=== PATIENT | female | born 1970 | race Caucasian/White ===

== ENCOUNTER 2019-04-23 08:53 | Inpatient (IN) ==
[2019-04-23] MEDS ORDERED: NS 1,000 ML IV ONE ×3 (09:09→09:10)
[2019-04-23] MEDS ORDERED: NS 500 ML IV ONE (09:11)
--- NOTE | 2019-04-23 09:19 | PROVIDER DOCUMENTATION ---
HPI-Respiratory General - General Chief Complaint: SEPSIS ALERT - D Stated Complaint: COUGH/SOB Time Seen by Provider: 04/23/19 09:05 Source: patient Allergies/Adverse Reactions: Patient Allergies Allergy/AdvReac Type Severity Reaction Status Date / Time aspirin Allergy Severe ANAPHYLAXIS Verified 04/23/19 09:43 cephalexin monohydrate * Allergy Severe ANAPHYLAXIS Verified 04/23/19 09:43 [From Keflex] daptomycin [From CUBICIN] Allergy Severe ANAPHYLAXIS Verified 04/23/19 09:43 vancomycin Allergy Severe ANAPHYLAXIS Verified 04/23/19 09:43 latex Allergy RASH Verified 04/23/19 09:43 Corticosteroids AdvReac Intermediate NAUSEA/VOMI Verified 04/23/19 09:43 (Glucocorticoids) TING naproxen AdvReac Intermediate SWELLING Verified 04/23/19 09:43 [id number] Antimigraine AdvReac Intermediate FLUSHING Verified 04/23/19 09:43 Agents naproxen sodium * AdvReac Unknown Verified 04/23/19 09:43 [From Anaprox] Penicillins AdvReac RASH Verified 04/23/19 09:43 Home Medications: Home Medication List Medication Instructions Recorded Confirmed Last Taken Type Gabapentin 800 mg PO TID 08/27/14 04/23/19 04/23/19 History Hydrocodone/Acetaminophen [[place] 10 mg PO TID 08/27/14 04/23/19 04/23/19 History 10-325 Tablet] Atenolol 25 mg PO DAILY 07/04/17 04/23/19 04/23/19 History Losartan [Cozaar] 100 mg PO DAILY 07/04/17 04/23/19 04/23/19 History Albuterol Sulfate Inhaler 2 puff INH Q6H PRN PRN #1 inhaler 09/01/17 04/23/19 04/23/19 Rx [Ventolin Hfa] Guaifenesin/D-Methorphan Hb/PE 1 ea PO Q4-6H PRN PRN #20 tab 09/20/17 04/23/19 04/23/19 Rx [Deconex Dmx Tablet] Azithromycin [Zithromax Z-Darnell] 250 mg PO DIRECTED #1 pkg 04/13/19 04/23/19 2 Days Ago Rx ~04/21/19 Insulin Degludec [Tresiba 60 unit SQ QPM 04/23/19 04/23/19 1 Day Ago History Flextouch U-100] ~04/22/19 Sitagliptin [Januvia] 50 mg PO DAILY 04/23/19 04/23/19 04/23/19 History Tizanidine [Zanaflex] 4 mg PO QHS 04/23/19 04/23/19 1 Day Ago History ~04/22/19 - History of Present Illness-Resp Nature of Presenting Problem: Patient presents with worsening shortness of breath. She was seen last week and diagnosed with bronchitis. She took a Zpak, but states she continues to worsen. She has quit smoking. Quality of Pain: reports: none Onset/Duration: reports: last week Timing: reports: still present Context: denies: recent foreign travel, insect bite (possible tick), recent chemotherapy, multiple patients with similar complaints, recent URI, out of meds, sports/exercise, aspiration/choking, other Exposure: reports: unknown cause Cough Quality/Degree: reports: severe, sputum (green) Episode Frequency: occasional episodes Current Respiratory Medication Therapy: Initiated see nurses note Modifying Factors: improves with: nothing Associated Symptoms: reports: muscle/bodyaches, shortness of breath. denies: fever/chills Similar Symptoms Previously?: Yes Recently seen or treated by another doctor?: Yes Review of Systems - Adult - REVIEW OF SYSTEMS - ADULT Constitutional: reports: no symptoms reported Eyes: reports: no symptoms reported Ears, Nose, Mouth & Throat: reports: no symptoms reported Cardiovascular: reports: no symptoms reported Respiratory: reports: see HPI Gastrointestinal: reports: no symptoms reported Genitourinary: reports: incontinence Musculoskeletal: reports: see HPI Integumentary: reports: no symptoms reported Neurological: reports: no symptoms reported Psychiatric: reports: no symptoms reported Endocrine: reports: no symptoms reported Allergic/Immunologic: reports: no symptoms reported Past History - Adult - PAST MEDICAL HISTORY-ADULT Review of Records: reports: Old Records Reviewed, Nursing Assessment Review Major Childhood Illnesses: reports: denies history Cardiovascular: reports: HTN Respiratory: reports: denies history Gastrointestinal: reports: denies history Obstetrical/Gynecological: reports: denies history Genitourinary: reports: denies history Musculoskeletal: reports: chronic pain, other (rheumatoid/ sepsis ) Neurological: reports: denies history Endocrine/Immune: reports: Diabetes, other (hx of hep C) Other Conditions: reports: other (strep intermedius in left knee) - PRIOR SURGERIES/PROCEDURES Surgical/Procedure History: reports: cholecystectomy, hysterectomy, orthopedic (extremity), joint replacement - PRIOR HOSPITALIZATIONS Prior Hospitalizations: reports: none - IMMUNIZATION STATUS Childhood Immunizations: See Nurse Assessment Flu Vaccine: See Nurse Assessment - FAMILY HISTORY Family History: reviewed, not pertinent Physical Exam-General - PHYSICAL EXAM-ADULT Initial Vital Signs Reviewed: Yes - CONSTITUTIONAL General Appearance: alert, mild distress, obese - EYES Eyes: PERRL/EOMI, pink conjunctivae - HEAD, EARS, NOSE, MOUTH & THROAT HENMT: normocephalic/atraumatic, moist mucous membranes, normal ENT inspection, TMs normal, pharynx normal - NECK Neck: non-tender, full range of motion, supple - RESPIRATORY Respiratory: respiratory distress (mild), wheezing - CARDIOVASCULAR Cardiovascular: normal peripheral pulses, no edema, no gallop, no murmur, tachycardia - GASTROINTESTINAL (ABDOMEN) Abdominal Exam: normal bowel sounds, non tender, soft, no organomegaly, no pul satile mass - LYMPHATIC Lymphatic: no adenopathy - MUSCULOSKELETAL Back Exam: normal inspection, no CVA tenderness, no vertebral tenderness Extremity: normal range of motion, non-tender, normal gait Peripheral Pulses: radial (R): 2+, radial (L): 2+, dorsalis-pedis (R): 1+, dorsalis-pedis (L): 1+ - SKIN Integumentary: normal color, normal turgor, warm/dry, abrasion(s) - NEUROLOGIC Neurologic: grossly normal - PSYCHIATRIC Psych/Mental Status: normal mood/affect - HEART Score HEART Score: History: Slightly Suspicious HEART Score: ECG: Normal HEART Score: Age: 45-65 Years HEART Score: Risk Factors for Atherosclerotic Disease: 1 or 2 Risk Factors HEART Score: Troponin: < or = Normal Limit Total HEART Score:: 2 Progress - PLAN OF CARE/RESULTS Progress/Plan/Lab Results: Vital Signs - 8 hr 04/23/19 08:57 04/23/19 10:23 04/23/19 10:31 Temperature 97.8 F Pulse Rate 131 H 112 H 113 H Respiratory Rate 26 H 18 21 Blood Pressure 170/124 173/108 O2 Sat by Pulse Oximetry 92 L 95 92 L 04/23/19 11:03 04/23/19 11:15 04/23/19 11:17 Temperature 98.9 F Pulse Rate 113 H 108 H 115 H Respiratory Rate 25 H 19 23 Blood Pressure 180/119 175/165 175/165 O2 Sat by Pulse Oximetry 94 L 92 L 95 Laboratory Results - last 24 hr 04/23/19 04/23/19 04/23/19 09:11 09:22 09:22 WBC 12.02 H RBC 4.42 Hgb 12.5 Hct 37.9 MCV 85.7 MCH 28.3 MCHC 33.0 RDW Std Deviation 15.0 H Plt Count 397 MPV 9.4 Immature Gran % (Auto) 0.5 Neut % (Auto) 62.6 Lymph % (Auto) 29.0 [place] % (Auto) 3.7 Eos % (Auto) 3.6 Baso % (Auto) 0.6 Immature Gran # (Auto) 0.06 H Neut # (Auto) 7.53 H Lymph # (Auto) 3.49 H [place] # (Auto) 0.44 Eos # (Auto) 0.43 Baso # (Auto) 0.07 PT INR PTT (Actin FS) Sodium 135 L Potassium 3.5 Chloride 101 Carbon Dioxide 21 L Anion Gap 13 BUN 5 L Creatinine 0.6 Estimated GFR/1.73 m2 > 60 BUN/Creatinine Ratio 8 Glucose 183 H POC Glucose 148 H Calculated Osmolality 272 Calcium 8.6 L Total Bilirubin 0.23 AST 24 ALT 20 Alkaline Phosphatase 185 H Creatine Kinase 89 Troponin T Total Protein 6.7 Albumin 3.9 Globulin 2.8 Albumin/Globulin Ratio 1.4 Plasma Lactate Urine Source Urine Color Urine Turbidity Urine pH Ur Specific [place] Urine Protein Ur Glucose (Stick) Ur Ketones (Stick) Urine Blood Urine Nitrite Urine Bilirubin Urobilinogen Dipstick Urine Leukocytes Urine WBC (Auto) Urine RBC (Auto) U Epithel Cells (Auto) Urine Bacteria (Auto) 04/23/19 04/23/19 04/23/19 09:22 09:22 09:22 WBC RBC Hgb Hct MCV MCH MCHC RDW Std Deviation Plt Count MPV Immature Gran % (Auto) Neut % (Auto) Lymph % (Auto) [place] % (Auto) Eos % (Auto) Baso % (Auto) Immature Gran # (Auto) Neut # (Auto) Lymph # (Auto) [place] # (Auto) Eos # (Auto) Baso # (Auto) PT 13.0 INR 0.91 PTT (Actin FS) 36.6 Sodium Potassium Chloride Carbon Dioxide Anion Gap BUN Creatinine Estimated GFR/1.73 m2 BUN/Creatinine Ratio Glucose POC Glucose Calculated Osmolality Calcium Total Bilirubin AST ALT Alkaline Phosphatase Creatine Kinase Troponin T < 0.010 Total Protein Albumin Globulin Albumin/Globulin Ratio Plasma Lactate 0.9 Urine Source Urine Color Urine Turbidity Urine pH Ur Specific [place] Urine Protein Ur Glucose (Stick) Ur Ketones (Stick) Urine Blood Urine Nitrite Urine Bilirubin Urobilinogen Dipstick Urine Leukocytes Urine WBC (Auto) Urine RBC (Auto) U Epithel Cells (Auto) Urine Bacteria (Auto) 04/23/19 09:25 WBC RBC Hgb Hct MCV MCH MCHC RDW Std Deviation Plt Count MPV Immature Gran % (Auto) Neut % (Auto) Lymph % (Auto) [place] % (Auto) Eos % (Auto) Baso % (Auto) Immature Gran # (Auto) Neut # (Auto) Lymph # (Auto) [place] # (Auto) Eos # (Auto) Baso # (Auto) PT INR PTT (Actin FS) Sodium Potassium Chloride Carbon Dioxide Anion Gap BUN Creatinine Estimated GFR/1.73 m2 BUN/Creatinine Ratio Glucose POC Glucose Calculated Osmolality Calcium Total Bilirubin AST ALT Alkaline Phosphatase Creatine Kinase Troponin T Total Protein Albumin Globulin Albumin/Globulin Ratio Plasma Lactate Urine Source CLEAN CATCH Urine Color YELLOW Urine Turbidity CLEAR Urine pH 6.0 Ur Specific [place] 1.017 Urine Protein TRACE A Ur Glucose (Stick) NEGATIVE Ur Ketones (Stick) NEGATIVE Urine Blood NEGATIVE Urine Nitrite NEGATIVE Urine Bilirubin NEGATIVE Urobilinogen Dipstick NORMAL Urine Leukocytes TRACE A Urine WBC (Auto) 10-20 A Urine RBC (Auto) <10 U Epithel Cells (Auto) <10 Urine Bacteria (Auto) NEGATIVE Orders Category Date Time Status Cardiac Monitoring DIRECTED Care 04/23/19 09:04 Active Finger Stick Blood Sugar (ED) DIRECTED Care 04/23/19 09:11 Active IV Insertion ORDERED Care 04/23/19 09:04 Active Notify MD of + Sepsis Screen NOW Care 04/23/19 09:04 Active Notify Physician As Ordered Care 04/23/19 09:04 Active Oxygen Therapy- ED Nursing DIRECTED Care 04/23/19 09:12 Active Diabetic Diet Diet 04/23/19 12:09 Active CHEST-1 VIEW [RAD] Stat Exams 04/23/19 09:04 Completed BLOOD CULTURE [BLDCUL] Stat Lab 04/23/19 09:52 Received CBC WITH DIFF [HEME] Stat Lab 04/23/19 09:22 Completed CK PROFILE [SP CHEM] Stat Lab 04/23/19 09:22 Completed COMPREHENSIVE METABOLIC PANEL [CHEM] Stat Lab 04/23/19 09:22 Completed LACTATE, PLASMA [CHEM] Lab 04/23/19 09:22 Completed LACTATE, PLASMA [CHEM] Lab 04/23/19 12:15 Uncollected LACTATE, PLASMA [CHEM] Lab 04/23/19 15:15 Uncollected PROTIME WITH INR [COAG] Stat Lab 04/23/19 09:22 Completed PTT [COAG] Stat Lab 04/23/19 09:22 Completed TROPONIN T Stat Lab 04/23/19 09:22 Completed URINALYSIS W/POSS RFLX CULT [URINALYSIS] Stat Lab 04/23/19 09:25 Completed URINE CULTURE [RM] Routine Lab 04/23/19 11:47 Received 0.9% Sodium Chloride Inj [Ns] 1,000 ml Med 04/23/19 09:09 Discontinued IV 999 mls/hr 0.9% Sodium Chloride Inj [Ns] 1,000 ml Med 04/23/19 09:09 Discontinued IV 999 mls/hr 0.9% Sodium Chloride Inj [Ns] 1,000 ml Med 04/23/19 09:10 Discontinued IV 999 mls/hr 0.9% Sodium Chloride Inj [Ns] 500 ml Med 04/23/19 09:11 Discontinued IV 999 mls/hr Acetaminophen [Tylenol] Med 04/23/19 12:42 Discontinued 650 mg PO NOW ONE Albuterol 2.5MG/Ipratrop 0.5MG [Duoneb (A & A)] Med 04/23/19 09:22 Di scontinued 3 ml INH NOW ONE Levofloxacin 500 mg/D5w [Levaquin 500 mg/D5w] Med 04/23/19 12:42 Active 500 mg in 100 ml IV NOW Aerosol Treatments Routine Oth 04/23/19 09:22 Completed Aerosol Treatments Stat Oth 04/23/19 09:22 Completed Oxygen Device Stat Oth 04/23/19 09:04 Completed Result Diagrams: 04/23/19 09:22 04/23/19 09:22 Departure - Departure Date of Disposition Decision: 04/23/19 Time of Disposition Decision: 12:53 DIAGNOSIS: Pneumonia Disposition: ADMITTED INPATIENT 09 Certified Medical Emergency: Emergent Condition: Stable Referrals and Follow-Ups: Brandon Cruz MD [Primary Care Provider] - Discharge Education: Steps to Quit Smoking, [id number] - Critical Care Note This patient required my direct & personal management of CC.: No Attestation - Physician/ ANNIA Attestation Patient care was provided by Advanced Practice Provider:: No The physician spent face to face time with patient:: Yes Advanced Practice Provider documentation review:: Supervising physician onsite and consulted in the evaluation and care of this patient. The physician did have a face to face encounter with the patient.
[2019-04-23] MEDS ORDERED: DUONEB (A & A) INH ONE (09:22)
[2019-04-23 09:42] LABS: URINE SOURCE CLEAN CATCH
[2019-04-23 09:49] LABS: BASO# 0.07 X1000 (0.0-0.2); BASO% 0.6 % (0.0-0.8); EOS# 0.43 X1000 (0.0-0.7); EOS% 3.6 % (0.0-10.0); HEMATOCRIT 37.9 % (37.0-47.0); HEMOGLOBIN 12.5 g/dL (12.0-16.0); IMM GRAN# 0.06 X1000 (0.0-0.04); IMM GRAN% 0.5 % (0.0-0.5); LYMPH# 3.49 X1000 (1.2-3.4); MCH 28.3 PG (27-31); MCV 85.7 FL (81-99); MONO# 0.44 X1000 (0.11-0.59); MONO% 3.7 % (1.7-9.3); MPV 9.4 FL (7.4-10.4); NEUT# 7.53 X1000 (1.4-6.5); NEUT% 62.6 % (42.2-75.2); PLT 397 X1000 (130-400); RBC 4.42 XMIL (4.2-5.4); WBC 12.02 X1000 (4.8-10.8)
[2019-04-23 09:51] LABS: BILIRUBIN URINE NEGATIVE (NEGATIVE); BLOOD URINE NEGATIVE (NEGATIVE); COLOR YELLOW; GLUCOSE URINE NEGATIVE (NEGATIVE); KETONE URINE NEGATIVE (NEGATIVE); LEUKOCYTES URINE TRACE (NEGATIVE); NITRITE URINE NEGATIVE (NEGATIVE); PROTEIN URINE TRACE mg/dL (NEGATIVE); SP GRAVITY URINE 1.017; TURBIDITY URINE CLEAR (CLEAR); UROBILINOGEN URINE NORMAL (NORMAL)
[2019-04-23 09:52] LABS: UR EPITHELIAL CELLS <10 /HPF (<10); URINE BACTERIA NEGATIVE /HPF; URINE RBC <10 /HPF (<10)
[2019-04-23 10:12] LABS: AGAP 13; ALB/GLOB RATIO 1.4; ALBUMIN 3.9 g/dL (3.5-5.0); ALKALINE PHOSPHATASE 185 U/L (32-104); BUN 5 mg/dL (8-22); CALCIUM 8.6 mg/dL (8.8-10.2); CHLORIDE 101 mmol/L (98-107); CK PROFILE 89 U/L (24-173); COSMO 272; CREATININE 0.6 mg/dL (0.5-0.9); ESTIMATED GFR > 60; GLUCOSE 183 mg/dL (70-104); GOT 24 U/L (10-30); GPT 20 U/L (10-36); POTASSIUM 3.5 mmol/L (3.5-5.1); SODIUM 135 mmol/L (136-145); TCO2 21 mmol/L (25-35); TOTAL BILIRUBIN 0.23 mg/dL (0.20-1.00); TOTAL PROTEIN 6.7 g/dL (6.3-8.3)
[2019-04-23 10:25] LABS: INR 0.91
[2019-04-23 10:26] LABS: PTT 36.6 Seconds (22.3-41.8)
--- NOTE | 2019-04-23 10:36 | Diag Imaging Result Doc PS360 ---
EXAM: CHEST-1 VIEW 04/23/2019 HISTORY: R/O PNEUMONIA TECHNIQUE: AP portable upright at 1019 COMMENT: The inspiration is suboptimal. There is ill-defined opacity in the left upper lobe. It is possible this is secondary to poor inspiration however the possibility of a pneumonia cannot be excluded. IMPRESSION: Questionable left upper lobe pneumonia. Electronically signed by Noah Donald 04/23/2019 10:34 AM
[2019-04-23] MEDS ORDERED: LEVAQUIN 500 MG/D5W 500 MG/100 ML IVPB IV ONE (12:42)
[2019-04-23] MEDS ORDERED: TYLENOL PO ONE (12:42)
[2019-04-23] MEDS ORDERED: MUCINEX PO SCH (14:17)
[2019-04-23] MEDS ORDERED: XOPENEX NEB INH PRN (14:17)
[2019-04-23] MEDS ORDERED: NS 1,000 ML IV SCH (14:17)
[2019-04-23] MEDS ORDERED: NS NEB INH SCH (14:17)
[2019-04-23] MEDS: TENORMIN PO SCH (15:17)
[2019-04-23] MEDS: COZAAR PO SCH (15:17)
--- NOTE | 2019-04-23 15:34 | HISTORY AND PHYSICAL ---
PRIMARY CARE PROVIDER: Amy Maloney. CHIEF COMPLAINT: Cough and shortness of breath. HISTORY OF PRESENT ILLNESS: Ms. Irwin is a 49-year-old female who carries a past medical history of hypertension, chronic pain, diabetes mellitus, history of hepatitis C, now in remission, strep intermedius in the left knee, who came to the ED for increase in shortness of breath and cough. She had increase in shortness of breath and cough for 2 weeks. She went to her doctor 1 week ago, was diagnosed with bronchitis and sent home with a Z-Darnell with no improvement. Laboratory data showed an elevated white count of 12. Chest x-ray revealed a questionable left upper lobe pneumonia. She complained of fever, chills, nausea and vomiting from coughing, chronic diarrhea, productive cough with anywhere from yellow brown to green sputum, generalized malaise. She was ruled out for sepsis, had a negative lactate. However, she was tachycardic upon admission and slightly hypoxemic, was placed on supplemental O2 and given 3 1/2 L bolus and initiated on IV Levaquin. PAST MEDICAL HISTORY: 1. Diabetes mellitus. 2. Hypertension. 3. Chronic pain. 4. Hepatitis C history. 5. Strep intermedius in the left knee. PAST SURGICAL HISTORY: 1. Bilateral joint replacement. She has had surgery on her left knee 7 times secondary to the strep. 2. Cholecystectomy. 3. Hysterectomy. FAMILY HISTORY: Reviewed and noncontributory. SOCIAL HISTORY: She is not . She does have children. She is an ex- smoker of 20+ years, 1 pack per day. She quit some time back. No alcohol, marijuana, or illicit drug use. She works at a group home. ALLERGIES: 1. Aspirin, anaphylaxis. 2. Keflex, anaphylaxis. 3. Cubicin, anaphylaxis. 4. Vancomycin, anaphylaxis. 5. Latex rash. 6. Glucocorticoids, her glucose corticoids nausea, vomiting. 7. Naproxen, unknown 8. Triptin-5-H T1 antimigraine agents, flushing. 9. Penicillin, rash. HOME MEDICATIONS: 1. Ventolin inhaler 2 puffs inhaled q.6 hours p.r.n. 2. Atenolol 25 mg p.o. daily. 3. Z-Darnell 250 mg p.o. as directed. 4. Gabapentin 100 mg p.o. t.i.d. 5. Deconex DMX tablet 1 each p.o. q.4 hours p.r.n. 6. Cobb 10 mg p.o. t.i.d. 7. Tresiba Flex Touch subcutaneous q.p.m. 8. Cozaar 100 mg p.o. daily. 9. Januvia 50 mg p.o. daily. 10. Zanaflex 4 mg p.o. at bedtime. PHYSICAL EXAMINATION: VITAL SIGNS: Temperature is 98.9 degrees, heart rate 118, respirations 24, blood pressure was 165/114, O2 is 94% on 2 L. GENERAL: Ms. Irwin is a distracted 49-year-old female who is sitting up in the bed in no acute distress. She continues to try to talk to family members on the phone as well as instruct family members have to answer and angelito her phone. HEENT: Atraumatic, normocephalic. PERRLA. NECK: Supple, trachea midline. CARDIOVASCULAR: S1, S2 appreciated. No murmurs, gallops, rubs noted. RESPIRATORY: Lung sounds clear bilaterally. Did not appreciate any rales, rhonchi, or wheezes. GASTROINTESTINAL: Soft, nontender, nondistended. Positive bowel sounds 4 quads. EXTREMITIES: Lower extremities negative for edema. Bilateral pedal pulses are bounding. SKIN: Appears to be warm, dry, and intact. NEUROLOGIC: No focal deficits noted. Moved all extremities. DIAGNOSTIC DATA: Chest x-ray questionable left upper lobe pneumonia. LABORATORY DATA: White count 12, hemoglobin and hematocrit 12 and 37, platelet count is 397,000. Sodium 135, potassium 3.5, BUN 5, creatinine 0.6, blood glucose is 183, alkaline phosphatase 185. Troponin less than 0.010. Urinalysis was negative. Plasma lactate was 0.9. ASSESSMENT AND PLAN: 1. Probable pneumonia. Patient was recently diagnosed with bronchitis. Continued to increase with worsening shortness of breath and cough. She was treated as a sepsis rule out, given 3.5 L fluid bolus, started on IV Levaquin and bronchodilators. We will Xopenex for continued tachycardia and aggressive pulmonary toilet. We will recheck a chest x- ray and laboratory data in the morning. Start her on guaifenesin. 2. Accelerated hypertension. We will start back her home medications except we will hold her beta-bautista until tomorrow. The emergency department did report some possible wheezing and stridor. Did not appreciate upon exam. 3. We will continue p.r.n. Apresoline. 4. Diabetes mellitus. Will check hemoglobin A1c. Do pattern blood sugars and sliding scale insulin. 5. Left knee strep history status post several knee surgeries and knee replacement. 6. Chronic pain. We will continue on home Cobb p.r.n. 7. History of hepatitis C in remission. 8. Further recommendations to follow physician evaluation, laboratory and diagnostic data. Patient seen and examined by me face to face, all the laboratory, vitals and images were reviewed, patient presented to the hospital with shortness of breath and cough that has been going on for a few days, as per the patient she is not an smoker, she has bilateral wheezes, she is not moving to much air, she can not get steroids because apparently she is allergic, she has some infiltrates at the bases and she failed an outpatient treatment for bronchitis, will start breathing treatment, antibiotics, O2, we will continue with most of her home medications, her father is at the bedside, I agree with the LABEL STAMPER's assessment and plan. Antonio Kern MD. Dictated by KALLIE Rocha for Antonio Mcintyre MD cc: MD Eula Clark
[2019-04-23] MEDS: ATROVENT NEB INH SCH ×3 (15:45→23:25)
[2019-04-23] MEDS: XOPENEX NEB INH SCH ×3 (15:46→23:25)
[2019-04-23] MEDS: NORCO-10 PO PRN ×2 (15:55→23:54)
[2019-04-23] MEDS ORDERED: NEURONTIN PO SCH (17:00)
[2019-04-23] MEDS: APRESOLINE IV PRN (17:05)
[2019-04-23] MEDS: HUMALOG SUBQ SCH ×2 (17:05→20:59)
[2019-04-23] MEDS ORDERED: ZANAFLEX PO SCH (21:00)
[2019-04-23] MEDS: TYLENOL PO PRN (21:03)
[2019-04-23] MEDS: TRESIBA FLEXTOUCH U-100 SUBQ SCH (21:04)
[2019-04-23] MEDS: ROBITUSSIN PO PRN (23:54)
[2019-04-24] MEDS: XOPENEX NEB INH SCH ×6 (03:45→23:15)
[2019-04-24] MEDS: ATROVENT NEB INH SCH ×6 (03:45→23:15)
[2019-04-24] MEDS: TYLENOL PO PRN ×3 (03:55→19:33)
[2019-04-24] MEDS: ROBITUSSIN PO PRN ×3 (04:44→16:24)
[2019-04-24] MEDS: HUMALOG SUBQ SCH ×4 (06:02→22:31)
[2019-04-24 07:45] LABS: BASO# 0.05 X1000 (0.0-0.2); BASO% 0.4 % (0.0-0.8); EOS# 0.25 X1000 (0.0-0.7); EOS% 2.2 % (0.0-10.0); HEMATOCRIT 37.6 % (37.0-47.0); HEMOGLOBIN 12.3 g/dL (12.0-16.0); IMM GRAN# 0.04 X1000 (0.0-0.04); IMM GRAN% 0.3 % (0.0-0.5); LYMPH# 2.72 X1000 (1.2-3.4); LYMPH% 23.7 % (20.5-51.1); MCH 28.1 PG (27-31); MCHC 32.7 g/dL (33-37); MCV 85.8 FL (81-99); MONO% 5.2 % (1.7-9.3); MPV 9.4 FL (7.4-10.4); NEUT# 7.82 X1000 (1.4-6.5); NEUT% 68.2 % (42.2-75.2); PLT 372 X1000 (130-400); RBC 4.38 XMIL (4.2-5.4); RDW 15.4 % (11.5-14.5); WBC 11.48 X1000 (4.8-10.8)
[2019-04-24 07:59] LABS: HEMOGLOBIN A1C 7.7 % (4.8-6.0)
[2019-04-24 08:05] LABS: AGAP 8; ALBUMIN 3.5 g/dL (3.5-5.0); ALKALINE PHOSPHATASE 164 U/L (32-104); BUN 5 mg/dL (8-22); CALCIUM 9.2 mg/dL (8.8-10.2); CHLORIDE 104 mmol/L (98-107); COSMO 279; CREATININE 0.5 mg/dL (0.5-0.9); ESTIMATED GFR > 60; GLUCOSE 143 mg/dL (70-104); GOT 13 U/L (10-30); GPT 16 U/L (10-36); POTASSIUM 3.4 mmol/L (3.5-5.1); SODIUM 140 mmol/L (136-145); TCO2 28 mmol/L (25-35); TOTAL BILIRUBIN 0.21 mg/dL (0.20-1.00)
[2019-04-24] MEDS: TENORMIN PO SCH (08:17)
[2019-04-24] MEDS: COZAAR PO SCH (08:17)
[2019-04-24] MEDS: NEURONTIN PO SCH ×3 (08:17→22:30)
[2019-04-24] MEDS: NORCO-10 PO PRN ×2 (08:17→15:59)
[2019-04-24] MEDS: JANUVIA PO SCH (08:17)
[2019-04-24] MEDS ORDERED: COZAAR PO SCH (09:00)
--- NOTE | 2019-04-24 09:04 | Diag Imaging Result Doc PS360 ---
CHEST-2 VIEWS - 04/24/2019 INDICATION: Pneumonia COMPARISON: 04/23/2019 FINDINGS: Lung volumes are improved. There is some faint infiltrate or atelectasis in the left lung base. Heart size remains normal. No pneumothorax or pleural effusion. IMPRESSION: Faint infiltrate or atelectasis in the left lung base probably in the lingula. Electronically signed by Edin Beebe 04/24/2019 9:02 AM
[2019-04-24] MEDS ORDERED: KLOR-CON PO ONE (09:59)
[2019-04-24] MEDS ORDERED: SOLU-MEDROL IV ONE ×2 (10:15→15:39)
[2019-04-24] MEDS ORDERED: SODIUM CHLORIDE 0.9% INJ ONE (10:16)
[2019-04-24] MEDS ORDERED: NUBAIN IV ONE ×2 (10:16→10:30)
[2019-04-24] MEDS ORDERED: PHENERGAN IV ONE (10:16)
[2019-04-24] MEDS: ADVAIR 250/50 DISKUS INH SCH ×2 (10:37→19:50)
[2019-04-24] MEDS: CLARITIN PO SCH (10:45)
[2019-04-24] MEDS: LEVAQUIN 750 MG in NS 150 ML IV SCH (13:18)
[2019-04-24] MEDS: ZANAFLEX PO PRN ×2 (13:18→19:34)
[2019-04-24] MEDS: APRESOLINE IV PRN (13:56)
--- NOTE | 2019-04-24 14:20 | PROGRESS NOTE ---
DATE: 04/24/2019 SUBJECTIVE: Patient is still complaining of shortness of breath and cough. We have modified some of her medications. Also she has been complaining of headache/migraine, and she has requested a single dose of small dose of Phenergan and Nubain. That as per the patient works really good for her migraine. Also I will give her a low dose of steroids. As per the patient, she is allergic to that, but apparently that caused only some nausea/vomiting and probably some itchiness. We have a positive urine culture that showed gram-negative rods. She has been placed on levofloxacin already. We will continue with same management and breathing treatment. OBJECTIVE: Vital Signs: Temperature 98.1 degrees, respiratory rate 18, pulse rate 87, blood pressure 189/120, oxygen saturation 96% on 2 L of nasal cannula. HEENT: Head normocephalic, no trauma. PERRLA. Neck: Supple. No JVD. No masses. Central trachea. Chest: Coarse breath sounds bilaterally with scattered faint expiratory wheezing and bilateral lower crepitus and rhonchi at the bases. Abdomen: Soft, obese, protuberant. Nontender. Nondistended. No hepatosplenomegaly. Extremities: No edema, no clubbing, no cyanosis. Neurological: The patient is alert and oriented x3. No focal deficits. She is anxious. LABORATORY: WBC 11.4, hemoglobin 12.3, hematocrit 37.6, platelet 372,000. Sodium 140, potassium 3.4, chloride 104, bicarbonate 28, BUN 5, creatinine 0.5, glucose 143, calcium 9.2. Hemoglobin A1c 7.7. ASSESSMENT AND PLAN: 1. Likely right lower lobe pneumonia, especially on the left side. Recently this patient has been diagnosed with bronchitis, and she was treated, but she came to the hospital because she was not getting better. She received some IV fluids. She has been placed on antibiotics. I will give her a low dose of steroids to see how she does. I will continue breathing treatment, oxygen supplementation. 2. Headache/migraines. As per the patient, Nubain plus Phenergan low dose help to her headaches and migraines. I will give her a one-time dose of that. 3. Hypertension. I will continue with same management. Blood pressure has been a little bit elevated. Continue with as-needed medication as well. 4. Type 2 diabetes. Hemoglobin A1c stable around 7.7. I will continue with the same management. 5. Chronic pain. We will continue with her usual home INCOMPLETE REPORT -- DICTATION STOPS HERE. cc: Antonio Mcintyre MD
[2019-04-24] MEDS ORDERED: MORPHINE IV ONE (16:05)
[2019-04-24] MEDS: TRESIBA FLEXTOUCH U-100 SUBQ SCH (22:30)
[2019-04-25] MEDS: NORCO-10 PO PRN ×3 (00:06→16:14)
[2019-04-25] MEDS: TYLENOL PO PRN (02:33)
[2019-04-25] MEDS: ZANAFLEX PO PRN ×3 (03:42→16:14)
[2019-04-25] MEDS: ATROVENT NEB INH SCH ×6 (03:55→23:40)
[2019-04-25] MEDS: XOPENEX NEB INH SCH ×6 (03:55→23:40)
[2019-04-25] MEDS: HUMALOG SUBQ SCH ×4 (06:39→22:30)
[2019-04-25 07:00] LABS: BASO# 0.02 X1000 (0.0-0.2); BASO% 0.1 % (0.0-0.8); EOS# 0.01 X1000 (0.0-0.7); EOS% 0.1 % (0.0-10.0); HEMATOCRIT 37.7 % (37.0-47.0); HEMOGLOBIN 12.3 g/dL (12.0-16.0); IMM GRAN# 0.08 X1000 (0.0-0.04); IMM GRAN% 0.4 % (0.0-0.5); LYMPH% 15.9 % (20.5-51.1); MCH 28.3 PG (27-31); MCHC 32.6 g/dL (33-37); MCV 86.7 FL (81-99); MONO# 1.06 X1000 (0.11-0.59); MONO% 5.4 % (1.7-9.3); MPV 9.4 FL (7.4-10.4); NEUT# 15.24 X1000 (1.4-6.5); NEUT% 78.1 % (42.2-75.2); PLT 394 X1000 (130-400); RBC 4.35 XMIL (4.2-5.4); RDW 15.8 % (11.5-14.5); WBC 19.51 X1000 (4.8-10.8)
[2019-04-25 07:26] LABS: AGAP 12; BUN 12 mg/dL (8-22); CALCIUM 9.5 mg/dL (8.8-10.2); CHLORIDE 103 mmol/L (98-107); COSMO 286; CREATININE 0.6 mg/dL (0.5-0.9); ESTIMATED GFR > 60; GLUCOSE 184 mg/dL (70-104); POTASSIUM 3.6 mmol/L (3.5-5.1); SODIUM 141 mmol/L (136-145); TCO2 26 mmol/L (25-35)
[2019-04-25] MEDS: ADVAIR 250/50 DISKUS INH SCH ×2 (07:55→20:05)
[2019-04-25] MEDS: COZAAR PO SCH (08:13)
[2019-04-25] MEDS: NEURONTIN PO SCH ×3 (08:14→22:29)
[2019-04-25] MEDS: CLARITIN PO SCH (08:14)
[2019-04-25] MEDS: JANUVIA PO SCH (08:14)
[2019-04-25] MEDS: TENORMIN PO SCH (08:14)
[2019-04-25] MEDS ORDERED: NUBAIN IV ONE ×2 (11:08→11:30)
[2019-04-25] MEDS ORDERED: SODIUM CHLORIDE 0.9% INJ ONE (11:09)
[2019-04-25] MEDS ORDERED: PHENERGAN IV ONE (11:09)
[2019-04-25] MEDS: SOLU-MEDROL IV SCH ×2 (11:39→22:30)
--- NOTE | 2019-04-25 11:51 | PROGRESS NOTE ---
DATE: 04/25/2019 SUBJECTIVE: This patient is still complaining of shortness of breath but compared with yesterday, she is better. I gave her a couple doses of IV methylprednisolone and that did not cause any kind of reaction. As per the patient, she is allergic to steroids. I will put her on methylprednisolone twice a day today, around 20 mg. Also, she has been complaining of headache, migraine-like, and she has requested Nubain and Phenergan again. I will give her at low dose. Urine culture showed E. coli that is sensitive to levofloxacin. We will continue with the same management. I do not think she is symptomatic. PHYSICAL EXAMINATION: Vital Signs: Temperature 97.9 degrees, pulse 88, respiratory rate 16, blood pressure 153/87, oxygen saturation 97% on 2 L of nasal cannula. HEENT: Head normocephalic. No trauma. PERRLA. Neck: Supple. No JVD. No masses. Central trachea. Chest: Coarse breath sounds bilaterally with scattered faint expiratory wheezing and bilateral lower crepitus. Rhonchi at the bases, better than yesterday. Abdomen: Soft, protuberant, nontender, nondistended. No hepatosplenomegaly. Extremities: No edema, no clubbing, no cyanosis. Neurological Examination: The patient is alert and oriented x3. No focal deficits. LABORATORY: WBC 19.5, hemoglobin 12.3, hematocrit 37.7, platelets 394,000. Sodium 141, potassium 3.6, chloride 103, bicarbonate 26, BUN 12, creatinine 0.6, glucose 184, calcium 9.5. ASSESSMENT AND PLAN: 1. Bilateral lower lobe pneumonia, especially on the left side. Recently, this patient has been diagnosed with bronchitis and she was treated with antibiotics but the treatment failed. She is feeling better. I will continue with antibiotics. I will continue with low dose steroids because, as per the patient, that sometimes can cause a rash and itchiness. Continue with oxygen supplementation as well and breathing treatments. 2. Possible asthma, chronic obstructive pulmonary disease (?). We will continue with the same management as above. 3. Headache/migraines. As per the patient, Nubain and Phenergan low dose help her for these kind of headaches. I will give her a new dose of this treatment again, low dose. 4. Hypertension. Continue with the same management. 5. Type 2 diabetes. Hemoglobin A1c stable at 7.7. I will continue with the same treatment. 6. Chronic pain. We will continue with her usual home dose of medications. 7. History of left knee streptococcus, status post several knee surgeries and replacement. Aware. 8. History of hepatitis C, in remission. Aware. 9. Leukocytosis, likely secondary to steroids and pneumonia. We will monitor. Hopefully, tomorrow we can put this patient on a low dose of steroids by mouth. 10. Overall, this patient is feeling better compared with yesterday but she is still having cough and shortness of breath, and needing oxygen. I am not quite sure if this patient has asthma or chronic obstructive pulmonary disease on top of the pneumonia. She does have a positive culture that showed Escherichia coli but I do not think she is symptomatic. She is on levofloxacin, which is sensitive anyway. Hopefully, this patient can be discharged in the next 48 hours. cc: Antonio Mcintyre MD
[2019-04-25] MEDS: LEVAQUIN 750 MG in NS 150 ML IV SCH (15:26)
[2019-04-25] MEDS: APRESOLINE IV PRN (22:30)
[2019-04-25] MEDS: TRESIBA FLEXTOUCH U-100 SUBQ SCH (22:31)
[2019-04-26] MEDS: NORCO-10 PO PRN ×3 (00:37→16:53)
[2019-04-26] MEDS: ZANAFLEX PO PRN ×3 (00:37→20:07)
[2019-04-26] MEDS: ATROVENT NEB INH SCH ×6 (03:45→23:45)
[2019-04-26] MEDS: XOPENEX NEB INH SCH ×6 (03:45→23:45)
[2019-04-26] MEDS: HUMALOG SUBQ SCH ×4 (06:38→21:20)
[2019-04-26] MEDS: TYLENOL PO PRN (06:43)
[2019-04-26 06:49] LABS: BASO# 0.03 X1000 (0.0-0.2); BASO% 0.2 % (0.0-0.8); EOS# 0.05 X1000 (0.0-0.7); EOS% 0.3 % (0.0-10.0); HEMOGLOBIN 12.4 g/dL (12.0-16.0); IMM GRAN# 0.09 X1000 (0.0-0.04); IMM GRAN% 0.6 % (0.0-0.5); LYMPH# 1.92 X1000 (1.2-3.4); LYMPH% 11.8 % (20.5-51.1); MCH 28.6 PG (27-31); MCHC 32.6 g/dL (33-37); MCV 87.6 FL (81-99); MONO# 0.44 X1000 (0.11-0.59); MONO% 2.7 % (1.7-9.3); MPV 9.4 FL (7.4-10.4); NEUT# 13.71 X1000 (1.4-6.5); NEUT% 84.4 % (42.2-75.2); PLT 406 X1000 (130-400); RBC 4.34 XMIL (4.2-5.4); RDW 16.1 % (11.5-14.5); WBC 16.24 X1000 (4.8-10.8)
--- NOTE | 2019-04-26 07:15 | Diag Imaging Result Doc PS360 ---
EXAM: CHEST-PORTABLE 04/26/2019 HISTORY: dyspnea TECHNIQUE: AP portable at 0531 COMMENT: There is linear opacity in the lingula and ill-defined opacity obscuring the right hemidiaphragm in the lower lobe. This is worse than on 04/24/2019. IMPRESSION: Worsening atelectasis versus pneumonia particularly in the right lower lobe. Electronically signed by Noah Donald 04/26/2019 7:13 AM
[2019-04-26 07:24] LABS: AGAP 14; BUN 17 mg/dL (8-22); CALCIUM 9.4 mg/dL (8.8-10.2); CHLORIDE 99 mmol/L (98-107); COSMO 285; CREATININE 0.5 mg/dL (0.5-0.9); ESTIMATED GFR > 60; GLUCOSE 245 mg/dL (70-104); POTASSIUM 4.5 mmol/L (3.5-5.1); SODIUM 138 mmol/L (136-145); TCO2 25 mmol/L (25-35)
[2019-04-26] MEDS: ADVAIR 250/50 DISKUS INH SCH ×2 (08:02→20:00)
[2019-04-26] MEDS: JANUVIA PO SCH (08:19)
[2019-04-26] MEDS: COZAAR PO SCH (08:19)
[2019-04-26] MEDS: NEURONTIN PO SCH ×3 (08:20→20:06)
[2019-04-26] MEDS: TENORMIN PO SCH (08:21)
[2019-04-26] MEDS: CLARITIN PO SCH (08:21)
[2019-04-26] MEDS: SOLU-MEDROL IV SCH ×2 (11:05→22:41)
[2019-04-26] MEDS: FIORICET PO PRN ×3 (11:05→20:07)
[2019-04-26] MEDS: LEVAQUIN 750 MG in NS 150 ML IV SCH (11:57)
--- NOTE | 2019-04-26 16:55 | PROGRESS NOTE ---
DATE: 04/26/2019 SUBJECTIVE: She is a patient of Dr. Rachel Cruz. This is a 49-year-old who carries a past medical history of hypertension, chronic pain, diabetes mellitus, history of hepatitis C which was in remission, strep intermedius in her left knee, came into the emergency room with increased shortness of breath and cough for 2 weeks. She went to her doctor a week ago, diagnosed with bronchitis, sent home on a Z-Darnell, no improvement. Had an elevated white count 12,000. Chest x- ray revealed questionable left upper lobe pneumonia. Complained of fever, chills, nausea, vomiting from coughing, chronic diarrhea, chronic cough, anywhere from yellow-brown to greenish sputum, generalized malaise. Did not appear to be in sepsis. PAST MEDICAL HISTORY: Reviewed again. 1. Diabetes mellitus type 2. 2. Hypertension. 3. Chronic pain. 4. Hepatitis C. 5. Strep intermedius found in the left knee. PAST SURGICAL HISTORY: 1. Bilateral joint replacement. Left knee she has had surgery 7 times secondary to strep infection. 2. Cholecystectomy. 3. Hysterectomy. ASSESSMENT AND PLAN: 1. So was admitted, admission diagnosis probable pneumonia and diagnosis of bronchitis as well. She was given some fluids and bronchodilators and put on Xopenex and aggressive pulmonary toilet. She was started her on guaifenesin. She does feel better. The breathing is better. Her main complaint today is a headache that is on the right side. Lortab does not seem to help so I let her try some Fioricet. 2. Accelerated hypertension on presentation. Blood pressure seemed to be running anywhere from 130-190 over 81-114, so we will continue to follow that. 3. Diabetes mellitus type 2. Hemoglobin A1c was 7.7. Following blood sugars. 4. Chronic pain syndrome. Aware. 5. History of hepatitis C. 6. Leukocytosis, likely secondary to her pneumonia. So overall, respiratory status is better and feeling better. White count is elevated, a little more elevated than on admission, but it was 19,000 yesterday, today it is 16,000, hematocrit 28, hemoglobin is 12. Chemistry: Sodium 136, potassium 4.5, chloride 99, BUN 17, creatinine 0.5. Blood sugars 236, 245, 293, and 203. REVIEW OF ORDERS: She is taking Tylenol 650 mg q.4 hours p.r.n., atenolol 25 mg a day. I started her on some Fioricet today to take 1 q.4 hours p.r.n. headache, it is really a right hemicranial headache, fluticasone salmeterol inhaler 1 puff inhaled b.i.d., Neurontin 800 mg t.i.d., hydrocodone 10 mg t.i.d. p.r.n., insulin degludec 60 mg subcutaneous q.p.m., ipratropium bromide 0.5 mg inhalation q.4 hours, Xopenex 1.25 mg q.4 hours p.r.n., Levaquin 750 mg IV q.24 hours, methylprednisone 20 mg IV q.12, Cozaar 100 mg p.o. daily, Claritin 10 mg a day, Januvia 50 mg daily, Zanaflex 4 mg p.o. t.i.d. p.r.n. LAB: From this morning, sodium 138, potassium 4.5, chloride 99, BUN 17, creatinine 0.5. Blood work looks good. cc: David Barrera MD
[2019-04-26] MEDS: TRESIBA FLEXTOUCH U-100 SUBQ SCH (21:20)
[2019-04-27] MEDS: NORCO-10 PO PRN ×2 (02:37→10:20)
[2019-04-27] MEDS: ROBITUSSIN PO PRN (02:40)
[2019-04-27] MEDS: ATROVENT NEB INH SCH ×4 (04:20→15:25)
[2019-04-27] MEDS: XOPENEX NEB INH SCH ×4 (04:20→15:26)
[2019-04-27] MEDS: FIORICET PO PRN ×4 (04:24→16:34)
[2019-04-27] MEDS: APRESOLINE IV PRN (04:24)
[2019-04-27] MEDS: HUMALOG SUBQ SCH ×3 (06:25→16:40)
--- NOTE | 2019-04-27 08:06 | Diag Imaging Result Doc PS360 ---
EXAM: CHEST-PORTABLE INDICATION: pneumonia TECHNIQUE: One view COMPARISON: 04/26/2019 FINDINGS: The mild atelectasis and/or infiltrate at the right lung base is approximately stable. No new consolidation is identified. Cardiac silhouette is stable. IMPRESSION: Essentially stable chest. Electronically signed by Girish Snider 04/27/2019 7:33 AM
[2019-04-27] MEDS: ADVAIR 250/50 DISKUS INH SCH (08:23)
[2019-04-27 08:30] LABS: BASO# 0.02 X1000 (0.0-0.2); BASO% 0.1 % (0.0-0.8); EOS# 0.01 X1000 (0.0-0.7); EOS% 0.1 % (0.0-10.0); IMM GRAN# 0.08 X1000 (0.0-0.04); IMM GRAN% 0.4 % (0.0-0.5); LYMPH# 3.39 X1000 (1.2-3.4); LYMPH% 18.7 % (20.5-51.1); MCH 28.5 PG (27-31); MCHC 32.6 g/dL (33-37); MCV 87.4 FL (81-99); MONO# 0.55 X1000 (0.11-0.59); MPV 9.3 FL (7.4-10.4); NEUT# 14.07 X1000 (1.4-6.5); NEUT% 77.7 % (42.2-75.2); PLT 509 X1000 (130-400); RBC 4.92 XMIL (4.2-5.4); RDW 16.1 % (11.5-14.5); WBC 18.12 X1000 (4.8-10.8)
[2019-04-27] MEDS: JANUVIA PO SCH (08:43)
[2019-04-27] MEDS: COZAAR PO SCH (08:43)
[2019-04-27] MEDS: CLARITIN PO SCH (08:43)
[2019-04-27] MEDS: TENORMIN PO SCH (08:43)
[2019-04-27] MEDS: NEURONTIN PO SCH ×2 (08:43→16:02)
[2019-04-27 09:47] LABS: AGAP 13; ALBUMIN 4.3 g/dL (3.5-5.0); ALKALINE PHOSPHATASE 151 U/L (32-104); BUN 11 mg/dL (8-22); CHLORIDE 97 mmol/L (98-107); COSMO 285; CREATININE 0.6 mg/dL (0.5-0.9); ESTIMATED GFR > 60; GLUCOSE 168 mg/dL (70-104); GOT 9 U/L (10-30); GPT 12 U/L (10-36); MAGNESIUM 2.3 mg/dL (1.5-2.7); POTASSIUM 4.2 mmol/L (3.5-5.1); SODIUM 141 mmol/L (136-145); TCO2 31 mmol/L (25-35); TOTAL BILIRUBIN 0.18 mg/dL (0.20-1.00); TOTAL PROTEIN 8.7 g/dL (6.3-8.3)
[2019-04-27] MEDS: ZANAFLEX PO PRN (10:24)
[2019-04-27] MEDS: SOLU-MEDROL IV SCH (11:45)
[2019-04-27] MEDS: LEVAQUIN 750 MG in NS 150 ML IV SCH (12:28)
[2019-04-27 15:35] VITALS: BP 149/101
--- NOTE | 2019-04-27 16:57 | DISCHARGE SUMMARY ---
ADMISSION DATE: 04/23/2019 DISCHARGE DATE: 04/27/2019 She is a patient of Eula Cruz MD. She presented with cough and shortness of breath on 04/23/2019. This is a 49-year-old who has a past medical history of hypertension, chronic pain, diabetes mellitus, history of hepatitis C which is in remission, and history of Streptococcus intermedius infection in the left knee. She came into the emergency room with increased shortness of breath and cough for 2 weeks. She went to her primary care physician who diagnosed her with bronchitis and sent her home on a Z-Darnell. She reported she did not feel like she had any improvement. Lab data showed elevated white blood count of 12,000. Chest x-ray revealed questionable left upper lobe pneumonia. Complained of fever, chills, nausea, vomiting from coughing, chronic diarrhea, productive cough anywhere from yellow to brown to green sputum, generalized malaise. She has ruled out for sepsis and had negative lactate; however, she had tachycardia on admission and slight hypoxemia. Was put on supplementary O2 and admitted to the hospital. PAST MEDICAL HISTORY: 1. Diabetes mellitus, type 2. 2. Hypertension. 3. Chronic pain. 4. Hepatitis C. 5. Streptococcus intermedius left knee infection. PAST SURGICAL HISTORY: 1. Bilateral joint replacement, both knees. I think the left knee had 7 surgeries because of infection. 2. Cholecystectomy. 3. Hysterectomy. ADMISSION DIAGNOSES: 1. Probable pneumonia or suspected pneumonia but treated her for bronchitis. I gave her supplementary O2, put her on IV Levaquin and bronchodilators. 2. Accelerated hypertension. I put her back on her home medications. Her blood pressure seemed to remain under good control. 3. Diabetes mellitus, type 2. Followed pattern sugars. Hemoglobin A1c was 8. 4. Left knee history of Streptococcus intermedius infection with several knee surgeries and knee replacement. Aware. 5. Chronic pain syndrome. She is on Jaffrey p.r.n. 6. History of hepatitis C, which is in remission. 7. Nutrition seemed to be okay. Chest x-ray on 04/24/2019: Faint infiltrate or atelectasis in the left lung base and probably the lingula. She was continued on antibiotics. Follow-up chest x-ray on 04/26/2019 showed some worsening atelectasis, but she was clinically doing better and breathing better, and then chest x- ray this morning essentially stable, mild atelectasis in the left lung base. She remained afebrile, and her white count did climb because she was on steroids. She clinically felt better and was requesting to go home, breathing comfortably so I will plan on sending her home. DISCHARGE MEDICATIONS: Tenormin 25 mg a day. She has her hydrocodone at home p.r.n. pain, insulin degludec 60 units subcutaneous q.p.m., ipratropium bromide 0.5 mg q.4 h. p.r.n. I will put her on a Medrol Dosepak. She is on Cozaar 100 mg daily. Claritin 10 mg daily. We will keep her on Levaquin 750 mg daily for another 7 days. Januvia 50 mg daily. Her Zanaflex 4 mg p.r.n. We will discharge her home. cc: David Barrera MD
== END 2019-04-27 17:58 | disposition home or self-care (01) | DRG 194 ==
LOC: ED 08:53 → SUATTDRO 13:39 → 3N 13:39
PROVIDERS: ATTEND Emergency Medicine
CPT/HCPCS: 71010; 71020; 71045; 71046; 80048; 80053; 81001; 82550; 82948; 83036; 83605; 83735; 84484; 85025; 85610; 85730; 87040; 87077; 87088; 87186; 94640; 94761; 94762; 94799; 96361; 96365; 99285; A9270; J0360; J1815; J1956; J2270; J2300; J2550; J2920; J7030; XXXXX